=== PATIENT | male | born 1985 | race Caucasian/White ===

== ENCOUNTER 2022-05-09 11:11 | Emergency (ER) | payer OTHER, MEDICAID ==
[~2022-05-09] VITALS: Ht 172.7 cm; Wt 109.0 kg
[2022-05-09] MEDS ORDERED: SODIUM CHLORIDE 0.9% 1,000 ML IV ONE (11:45)
[2022-05-09 13:12] LABS: BASOPHILS % 0.5 % (0.0-2.0); HEMATOCRIT. 42.4 % (42.0-52.0); HEMOGLOBIN. 14.8 g/dL (14.0-18.0); LYMPHOCYTES % 14.5 % (20.0-50.0); MEAN CORPUSCULAR HEMOGLOBIN 29.2 pg (28.0-32.0); MEAN CORPUSCULAR VOLUME 83.7 fL (80.0-94.0); MONOCYTES % 7.7 % (2.0-8.0); NEUTROPHILS % 77.3 % (40.0-76.0); PLATELET 210 x1000/uL (130-400); RED BLOOD CELL COUNT 5.07 mill/uL (4.7-6.1)
[2022-05-09 13:17] LABS: CHLORIDE 100 mEq/L (98-107)
[2022-05-09 13:28] LABS: ETHANOL BLOOD 282 mg/dL
[2022-05-09] MEDS ORDERED: POTASSIUM CHLORIDE 20MEQ TABLET SR PO SCH (13:30)
[2022-05-09 14:16] LABS: CLARITY URINE CLEAR (CLEAR); COLOR URINE YELLOW (YELLOW); KETONES URINE NEGATIVE (NEGATIVE); LEUKOCYTE ESTERASE URINE NEGATIVE (NEGATIVE); NITRITE URINE NEGATIVE (NEGATIVE); OCCULT BLOOD URINE NEGATIVE (NEGATIVE); PH URINE 6.5 (4.5-8.0); PROTEIN URINE NEGATIVE (NEGATIVE); SPECIFIC GRAVITY URINE 1.003 (1.005-1.030); UROBILINOGEN URINE 0.2 E.U./dL (0.2-1.0)
[2022-05-09 14:54] LABS: *AMPHETAMINES SCREEN URINE NEGATIVE (NEGATIVE); *BARBITURATES SCREEN URINE NEGATIVE (NEGATIVE); *BENZODIAZEPINES SCREEN URINE PRESUMTIVE POSITIVE (NEGATIVE); *COCAINE SCREEN URINE NEGATIVE (NEGATIVE); CANNABINOID URINE SCREEN NEGATIVE (NEGATIVE); METHADONE URINE SCREEN NEGATIVE (NEGATIVE); OPIATES URINE SCREEN NEGATIVE (NEGATIVE); PHENCYCLIDINE URINE SCREEN NEGATIVE (NEGATIVE)
[2022-05-10] MEDS: HALOPERIDOL 5MG TABLET PO SCH ×2 (11:51→17:34)
[2022-05-10] MEDS: SERTRALINE HCL 50MG TABLET PO SCH (11:51)
[2022-05-10] MEDS: CHLORDIAZEPOXIDE 25MG CAPSULE PO SCH (22:05)
[2022-05-10] MEDS: BENZTROPINE MESYLATE 0.5MG TABLET PO SCH (22:05)
[2022-05-11] MEDS ORDERED: IBUPROFEN 800MG TABLET PO ONE ×2 (06:45→22:00)
[2022-05-11] MEDS: CHLORDIAZEPOXIDE 25MG CAPSULE PO SCH (06:59)
[2022-05-11] MEDS: SERTRALINE HCL 50MG TABLET PO SCH (08:36)
[2022-05-11] MEDS: HALOPERIDOL 5MG TABLET PO SCH (08:36)
[2022-05-11] MEDS: BENZTROPINE MESYLATE 0.5MG TABLET PO SCH (08:36)
[2022-05-11] MEDS ORDERED: FOLIC ACID/VITAMIN B COMP W-C TABLET PO SCH (09:00)
[2022-05-11] MEDS: LORAZEPAM 0.5MG TABLET PO SCH ×2 (14:38→21:19)
[2022-05-11] MEDS ORDERED: OLANZAPINE 10MG TABLET PO SCH (21:00)
[2022-05-12] MEDS: LORAZEPAM 0.5MG TABLET PO SCH (06:06)
[2022-05-12 08:00] VITALS: BP 128/79
[2022-05-12] MEDS: SERTRALINE HCL 50MG TABLET PO SCH (08:43)
== END 2022-05-12 09:59 | disposition home or self-care (01) ==
LOC: ER 11:21
DX: R45.851 Suicidal ideations (principal); R44.1 Visual hallucinations; E87.6 Hypokalemia; K70.10 Alcoholic hepatitis without ascites; F10.129 Alcohol abuse with intoxication, unspecified; Y90.8 Blood alcohol level of 240 mg/100 ml or more; E78.00 Pure hypercholesterolemia, unspecified; I10 Essential (primary) hypertension; F15.10 Other stimulant abuse, uncomplicated; Z20.822 Contact with and (suspected) exposure to COVID-19
CPT/HCPCS: 36415; 71045; 80053; 80305; 80320; 81003; 83690; 84484; 85025; 93005; 96360; 96361; 99285; C9803; J1630; J7030; U0003; U0005; G0480